=== PATIENT | female | born 2005 | race Caucasian/White ===

== ENCOUNTER 2024-11-25 15:16 | Emergency (ER) | payer MEDICAID, SELFPAY ==
[2024-11-25 15:18] VITALS: BP 113/78; PULSE 100; RESP 16; TEMP 36.4; O2SAT 99; BMI 20.9
--- NOTE | 2024-11-25 15:57 | EDS_ITS ---
HPI History of Present Illness Chief Complaint: Head Injury Narrative Narrative: Chief complaint and HPI: Chronic forgetfulness. 19-year-old female with no significant past medical history presents for evaluation of chronic forgetfulness. Patient states in June she had an head injury in which she hit her head on the door of a car. States she was never evaluated for this or seen. Patient states since the incident she has had chronic forgetfulness. Friend also noticed that she easily becomes aggravated. She denies any recent injury or trauma. Denies any fever, chills, nausea, vomiting, headaches, neurological deficits, weakness, numbness/tingling. States that her friend told her she needs to finally be evaluated which is why she presents today. Review of systems: See HPI Medications: As listed on the chart Allergies: As listed on the chart PFSH: Per chart Vital signs: As listed on the chart. Reviewed. Physical exam: Gen: A&O x3, NAD Head: Normocephalic, atraumatic Eyes: No sclera icterus, conjunctiva clear, PERRL, EOMI ENT: Moist mucous membranes, No facial asymmetry Neck: Trachea midline, No JVD, full range of motion CV: RRR, no murmurs, no peripheral edema Resp: Lungs CTA BL, no w/r/c GI: Abd soft, non-distended, non-tender, no r/r/g Musc: Full ROM, no deformity, strength +5/5 in all extremities Skin: Warm, dry Neuro: Alert, oriented, grossly intact, sensation intact, no focal deficits Psych: Cooperative, appropriate mood and affect [facility] Allergy/AdvReac Type Severity Reaction Status Date / Time chocolate AdvReac Mild SORE THROAT Verified 11/25/24 15:17 EXAM Physical Exam Const Vital Signs: 11/25/24 15:18 Temperature 97.6 F L Temperature Source Temporal Pulse Rate 100 Respiratory Rate 16 Blood Pressure 113/78 Blood Pressure Mean 89 Pulse Ox 99 Oxygen Delivery Method Room Air MDM MDM MDM Narrative Medical decision making narrative: 19-year-old female with no significant past medical history presents for evaluation of chronic forgetfulness. Symptom started after hitting her head on a car door in June. Denies any new symptoms. Differential diagnosis i ncludes but is not limited to prolonged concussion, TBI, intracranial abnormality, electrolyte abnormality, UTI, . Basic labs will be ordered along with CT head. Discharge Plan Triage Chief Complaint: Head Injury ED Provider: Solo Oconnor Dx/Rx/DC Orders Primary Care Provider: Care Physician,No Primary Referrals: NOT,DEFINED [Non-Staff] - Print Language: Trinidadian
--- NOTE | 2024-11-25 15:57 | EX.ED.GENINJ ---
HPI History of Present Illness Chief Complaint: Head Injury Narrative Narrative: Chief complaint and HPI: Chronic forgetfulness. 19-year-old female with no significant past medical history presents for evaluation of chronic forgetfulness. Patient states in June she had an head injury in which she hit her head on the door of a car. States she was never evaluated for this or seen. Patient states since the incident she has had chronic forgetfulness. Friend also noticed that she easily becomes aggravated. She denies any recent injury or trauma. Denies any fever, chills, nausea, vomiting, headaches, neurological deficits, weakness, numbness/tingling. States that her friend told her she needs to finally be evaluated which is why she presents today. Review of systems: See HPI Medications: As listed on the chart Allergies: As listed on the chart PFSH: Per chart Vital signs: As listed on the chart. Reviewed. Physical exam: Gen: A&O x3, NAD Head: Normocephalic, atraumatic Eyes: No sclera icterus, conjunctiva clear, PERRL, EOMI ENT: Moist mucous membranes, No facial asymmetry Neck: Trachea midline, No JVD, full range of motion CV: RRR, no murmurs, no peripheral edema Resp: Lungs CTA BL, no w/r/c GI: Abd soft, non-distended, non-tender, no r/r/g Musc: Full ROM, no deformity, strength +5/5 in all extremities Skin: Warm, dry Neuro: Alert, oriented, grossly intact, sensation intact, no focal deficits Psych: Cooperative, appropriate mood and affect [facility] Allergy/AdvReac Type Severity Reaction Status Date / Time chocolate AdvReac Mild SORE THROAT Verified 11/25/24 15:17 Social History Smoking Status: Current every day smoker tobacco type: cigarettes EXAM Physical Exam Const Vital Signs: 11/25/24 15:18 11/25/24 17:33 Temperature 97.6 F L 97.9 F Temperature Source Temporal Pulse Rate 100 70 Respiratory Rate 16 16 Blood Pressure 113/78 118/78 Blood Pressure Mean 89 91 Pulse Ox 99 99 Oxygen Delivery Method Room Air MDM MDM MDM Narrative Medical decision making narrative: 19-year-old female with no significant past medical history presents for evaluation of chronic forgetfulness. Symptom started after hitting her head on a car door in June. Denies any new symptoms. Differential diagnosis includes but is not limited to prolonged concussion, TBI, intracranial abnormality, electrolyte abnormality, UTI, . Basic labs will be ordered along with CT head. CBC without leukocytosis or anemia. BMP unremarkable without electrolyte abnormality or GALINDO. UA negative for UTI. Urine negative. CT of the head shows no acute intracranial abnormality. At this point in time, no clear etiology for patient's chronic forgetfulness. However given this happened after a close head injury concern is for prolonged concussion versus TBI. Recommend follow-up with PCP and neurology. She confirmed understand the plan. Patient is able to discharge home. Impression: 1. Chronic forgetfulness 2. History of close head injury in June Lab Data Labs: Laboratory Results - last 24 hr 11/25/24 16:00 WBC 6.2 RBC 4.25 Hgb 12.1 Hct 35.9 L MCV 84.5 MCH 28.5 MCHC 33.7 RDW Std Deviation 37.8 RDW Coeff of Benjamin 12.5 Plt Count 283 MPV 10.4 Immature Gran % (Auto) 0.200 Neut % (Auto) 45.2 L Lymph % (Auto) 39.6 [place] % (Auto) 11.7 H Eos % (Auto) 2.7 Baso % (Auto) 0.6 Absolute Neuts (auto) 2.8 Absolute Lymphs (auto) 2.47 Nucleated RBC % 0 Sodium 135 Potassium 3.8 Chloride 102 Carbon Dioxide 22.5 Anion Gap 11 BUN 14 Creatinine 0.80 Estim Creat Clear Calc 103.39 Est GFR (MDRD) Non-Af 108 BUN/Creatinine Ratio 17.2 Glucose 88 Calcium 9.7 Urine Color Yellow Urine Clarity Clear Urine pH 6.0 Ur Specific [place] 1.015 Urine Protein 15 H Urine Glucose (UA) Normal Urine Ketones Negative Urine Occult Blood 10 H Urine Nitrite Negative Urine Bilirubin Negative Urine Urobilinogen Normal Ur Leukocyte Esterase 25 H Urine RBC 0-5 SEEN Urine WBC 0-5 SEEN Ur Squamous Epith Cells 0-5 SEEN Urine Bacteria 1+ Urine Mucus 0 SEEN Urine Test Negative Radiography Diagnostic Testing: Clinical Impression(s) from Imaging Studies Brain CT 11/25/24 16:47 IMPRESSION: No acute intracranial abnormality. Reading Location: [place] [id number] Discharge Plan Triage Chief Complaint: Head Injury ED Provider: Solo Oconnor Dx/Rx/DC Orders Clinical Impression: Forgetfulness, History of closed head injury Instructions: ED Head Injury (Adult) Primary Care Provider: Care Physician,No Primary Referrals: Lizette Reyes MD [Med Staff - Consulting] - 3-5 Days Dionicio Amado MD [Med Staff - Active Staff] - 3-5 Days Activity Restrictions/Additional Instructions: Follow-up with primary care physician and neurology. Return back to ED if symptoms change or worsen. Print Language: Syriac Disposition Disposition: Home, Self Care Discharge Date/Time: 11/25/24 17:38
[2024-11-25 16:13] LABS: Absolute Lymphocyte Count 2.47 X10^3/uL (0.83-4.51); Absolute Neutrophil Count 2.8 X10^3/uL (2.0-7.7); Basophil# 0.04 X10^3/uL; Basophil% 0.6 % (0-1); Eosinophil# 0.17 X10^3/uL; Eosinophils% 2.7 % (0-5); Hematocrit 35.9 % (37-47); Hemoglobin 12.1 g/dL (12.0-15.0); Lymphocyte # 2.47 X10^3/ul (0.83-4.51); Lymphocyte % 39.6 % (19-41); Mean Corp Hgb Conc 33.7 g/dL (32-36); Mean Corpuscular Hgb 28.5 pg (27.0-32.0); Mean Corpuscular Volume 84.5 fL (81-99); Mean Platelet Vol. 10.4 fl (6.2-12.0); Monocyte# 0.73 X10^3/uL; Monocyte% 11.7 % (0-10); NRBC Flagged by Analyzer 0 % (0-5); Neutrophil # 2.81 X10^3/uL (2.7-7.7); Neutrophil % 45.2 % (47-70); Platelet Count 283 K/mm3 (150-450); RBC Distribution Width CV 12.5 % (11.6-14.6); RBC Distribution Width SD 37.8 fl (35.1-43.9); Red Blood Count 4.25 M/mm3 (4.2-5.4); White Blood Count 6.2 K/mm3 (4.4-11.0)
[2024-11-25 16:14] LABS: Mucous, Urine 0 SEEN /hpf (<or=2+)
[2024-11-25 16:23] LABS: Color, Urine Yellow (Yellow); Glucose, Dipstick Normal (Normal); Ketone-Dipstick Negative (Negative); Leukocyte Esterase-Dipstick 25 /ul (Negative); Nitrite-Dipstick Negative (Negative); Occult Blood-Urine 10 /ul (Negative); Protein-Dipstick 15 mg/dl (Negative); Specific Gravity, Urine 1.015 (1.002-1.030); Urine Bilirubin Dipstick Negative (Negative); Urine Clarity Clear (Clear); Urine Urobilinogen Normal (Normal)
[2024-11-25 16:27] LABS: Anion Gap 11 (5-15); BUN 14 mg/dL (4-19); BUN/Creat Ratio 17.2 RATIO (10-20); Calcium,Total 9.7 mg/dL (7.6-11.0); Carbon Dioxide 22.5 mmol/L (21.0-32.0); Chloride 102 mmol/L (98-108); EST Glomerular Filtration Rate 108 (>60); Estimated Creatinine Clearance 103.39 ml/min (50-250); Glucose 88 mg/dL (70-99); Potassium 3.8 mmol/L (3.3-5.1); Sodium Level 135 mmol/L (133-145)
[2024-11-25 16:31] LABS: Bacteria 1+ /hpf (None Seen); Red Blood Cells-Urine 0-5 SEEN /hpf (0-5); Squamous Epithelial Cells - UA 0-5 SEEN /hpf (5-10); White Blood Cells 0-5 SEEN /hpf (0-5)
[2024-11-25 16:32] LABS: Internal QC Validated? YES +Cl - CLEAR BKGD; Pregnancy, Urine Negative Negative
--- NOTE | 2024-11-25 16:47 | CT_ITS ---
PROCEDURE: BRAIN/HEAD WITHOUT CONTRAST 11/25/2024 REASON FOR EXAM: INJURY TECHNIQUE: Head CT without intravenous contrast. Coronal and Sagittal reconstruction series were provided. One or more dose reduction techniques were used (e.g., Automated exposure control, adjustment of the mA and/or kV according to patient size, use of iterative reconstruction technique. RADIATION DOSE SUMMARY: CTDlvol: 47.06 mGy DLP: 72.68 mGycm COMPARISON: None. FINDINGS: The ventricles are normal in size and midline in position. No evidence of acute hemorrhage or infarction. No extra-axial blood or fluid collections. The paranasal sinuses are clear. The mastoid air cells are well aerated. The calvarial vault and skull base are intact. CT/Brain/Head without Contrast IMPRESSION: No acute intracranial abnormality. Reading Location: [place] [address]
[2024-11-25 17:33] VITALS: BP 118/78; PULSE 70; RESP 16; TEMP 36.6; O2SAT 99
== END 2024-11-25 17:38 | disposition home or self-care (01) ==
PROVIDERS: Emergency Provider Surgery; Visit Provider Surgery
DX: R41.89 Other symptoms and signs involving cognitive functions and awareness (principal); Z87.828 Personal history of other (healed) physical injury and trauma; F17.210 Nicotine dependence, cigarettes, uncomplicated
CPT/HCPCS: 70450; 80048; 81001; 81025; 85025; 99285; A4216